=== PATIENT | male | born 1990 | race Caucasian/White ===

== ENCOUNTER → 2017-09-20 | Outpatient (CLI) | payer BC ==
--- NOTE | 2017-09-21 08:18 | CT ---
EXAMINATION TYPE: CT foot LT wo con DATE OF EXAM: 09/20/2017 COMPARISON: NONE HISTORY: Left foot fx. CT DLP: 283 mGycm Automated exposure control for dose reduction was used. FINDINGS: There are comminuted fractures of the base of the third and fourth metatarsals with intra-articular e xtension of the fourth metatarsal base. The fourth metatarsal fracture is nondisplaced and there is m inimal lateral (4 mm) displacement of the distal fracture fragment of the third metatarsal. Overlying associated soft tissue swelling is also seen. Alignment is suboptimal to evaluate the Lisfranc ligam ent, however no gross widening is seen. No additional fracture is identified. The ankle mortise is intact and ankle joint is aligned. Talar dome is unremarkable. Within the limitations of CT the extensor and flexor tendons are unremarkable thickness. The tarsal b ones appear intact and well aligned. IMPRESSION: COMMINUTED FRACTURES OF THE BASES OF THE THIRD AND FOURTH METATARSALS WITH INTRA-ARTICULAR EXTENSION OF THE FOURTH METATARSAL BASE AND MINIMAL 4 MM LATERAL DISPLACEMENT OF THE DISTAL FRACTURE FRAGMENT O F THE THIRD METATARSAL.
== END | disposition home or self-care (01) ==
LOC: RADCTMAIN 18:53
PROVIDERS: ATTEND Orthopaedic Surgery
DX: S92.342D Displaced fracture of fourth metatarsal bone, left foot, subsequent encounter for fracture with routine healing (principal); S92.332D Displaced fracture of third metatarsal bone, left foot, subsequent encounter for fracture with routine healing

== ENCOUNTER 2020-07-19 16:27 | Observation (INO) | payer BC, OTHER ==
--- NOTE | 2020-07-19 19:02 | ED ---
General Adult HPI - General Chief complaint: Chest Pain Stated complaint: chest pain Time Seen by Provider: 07/19/20 18:45 Source: patient Mode of arrival: ambulatory Limitations: no limitations - History of Present Illness Initial comments: Dictation was produced using [employer] dictation software. please excuse any grammatical, word or spelling errors. This patient was cared for during a federal and state declared state of emergency secondary to Covid 19 Chief Complaint: 30 yo Male presents with chest pain History of Present Illness: 30-year-old male who presents today with chest pain. Patient states he has a pressure-like sensation to his substernal area. Patient states she has this on and off for the last 2-3 weeks. He states it initially began as palpitations. Patient reports he has extensive history of cardiac disease in his family. Patient reports that his symptoms occur spontaneously. Is not worse with exertion. Not worsened with deep inspiration. Is not worse with movement. Is not positional. Patient denies any cough or shortness of breath. The ROS documented in this emergency department record has been reviewed and confirmed by me. Those systems with pertinent positive or negative responses have been documented in the HPI. All other systems are other negative and/or noncontributory. PHYSICAL EXAM: General Impression: Alert and oriented x3, not in acute distress HEENT: Normocephalic atraumatic, extra-ocular movements intact, pupils equal and reactive to light bilaterally, mucous membranes moist. Cardiovascular: Heart regular rate and rhythm Chest: Able to complete full sentences, no retractions, no tachypnea Abdomen: abdomen soft, non-tender, non-distended, no organomegaly Musculoskeletal: Pulses present and equal in all extremities, no peripheral edema Motor: no focal deficits noted Neurological: CN II-XII grossly intact, no focal motor or sensory deficits noted Skin: Intact with no visualized rashes Psych: Normal affect and mood ED course: 30-year-old male presents today with atypical chest pain with typical features. Of concern he reports a history of, history of cardiac disease. EKG is unremarkable Vital signs upon arrival shows temperature 9.9, rest vital signs within acceptable limits. Labs are unremarkable. Chest x-ray is negative. Disposition options were discussed with patient. He is agreeable for admission and observation for suture troponins a cardiology consult. Case was discussed with Ema Jones was agreeable with excepting patient care on behalf of [place] hospitalist group. EKG interpretation: Ventricular rate 81, normal sinus rhythm, PA interval 120, QRS 96, QTC 46. No PA prolongation, no QTC prolongation, no ST or T-wave changes noted. Overall, this EKG is unremarkable - Related Data Home Medications Medication Instructions Recorded Confirmed No Known Home Medications 07/19/20 07/19/20 Allergies Allergy/AdvReac Type Severity Reaction Status Date / Time No Known Allergies Allergy Verified 07/19/20 20:19 Review of Systems ROS Statement: Those systems with pertinent positive or pertinent negative responses have been documented in the HPI. ROS Other: All systems not noted in ROS Statement are negative. Past Medical History Additional Past Medical History / Comment(s): heart murmur History of Any Multi-Drug Resistant Organisms: None Reported Past Surgical History: No Surgical Hx Reported Past Psychological History: No Psychological Hx Reported Smoking Status: Never smoker Past Alcohol Use History: Rare Past Drug Use History: Marijuana General Exam Limitations: no limitations Course Vital Signs 07/19/20 07/19/20 16:48 19:00 Temperature 99.9 F H Pulse Rate 86 73 Respiratory 16 18 Rate Blood Pressure 134/91 124/87 O2 Sat by Pulse 100 98 Oximetry Medical Decision Making - Lab Data Result diagrams: 07/19/20 18:59 07/19/20 18:59 Lab Results 07/19/20 07/19/20 07/19/20 Range/Units 18:59 18:59 18:59 WBC 12.7 H (3.8-10.6) k/uL RBC 5.27 (4.30-5.90) m/uL Hgb 16.3 (13.0-17.5) gm/dL Hct 47.9 (39.0-53.0) % MCV 90.9 (80.0-100.0) fL MCH 30.9 (25.0-35.0) pg MCHC 34.0 (31.0-37.0) g/dL RDW 12.2 (11.5-15.5) % Plt Count 287 (150-450) k/uL MPV 8.9 Neutrophils % 69 % Lymphocytes % 18 % Monocytes % 6 % Eosinophils % 4 % Basophils % 1 % Neutrophils # 8.7 H (1.3-7.7) k/uL Lymphocytes # 2.3 (1.0-4.8) k/uL Monocytes # 0.8 (0-1.0) k/uL Eosinophils # 0.5 (0-0.7) k/uL Basophils # 0.1 (0-0.2) k/uL PT 10.2 (9.0-12.0) sec INR 1.0 (<1.2) APTT 24.8 (22.0-30.0) sec Sodium 139 (137-145) mmol/L Potassium 4.0 (3.5-5.1) mmol/L Chloride 103 (98-107) mmol/L Carbon Dioxide 26 (22-30) mmol/L Anion Gap 10 mmol/L BUN 14 (9-20) mg/dL Creatinine 0.96 (0.66-1.25) mg/dL Est GFR (CKD-EPI)AfAm >90 (>60 ml/min/1.73 sqM) Est GFR (CKD-EPI)NonAf >90 (>60 ml/min/1.73 sqM) Glucose 102 H (74-99) mg/dL Calcium 10.1 (8.4-10.2) mg/dL Troponin I (0.000-0.034) ng/mL 07/19/20 Range/Units 18:59 WBC (3.8-10.6) k/uL RBC (4.30-5.90) m/uL Hgb (13.0-17.5) gm/dL Hct (39.0-53.0) % MCV (80.0-100.0) fL MCH (25.0-35.0) pg MCHC (31.0-37.0) g/dL RDW (11.5-15.5) % Plt Count (150-450) k/uL MPV Neutrophils % % Lymphocytes % % Monocytes % % Eosinophils % % Basophils % % Neutrophils # (1.3-7.7) k/uL Lymphocytes # (1.0-4.8) k/uL Monocytes # (0-1.0) k/uL Eosinophils # (0-0.7) k/uL Basophils # (0-0.2) k/uL PT (9.0-12.0) sec INR (<1.2) APTT (22.0-30.0) sec Sodium (137-145) mmol/L Potassium (3.5-5.1) mmol/L Chloride (98-107) mmol/L Carbon Dioxide (22-30) mmol/L Anion Gap mmol/L BUN (9-20) mg/dL Creatinine (0.66-1.25) mg/dL Est GFR (CKD-EPI)AfAm (>60 ml/min/1.73 sqM) Est GFR (CKD-EPI)NonAf (>60 ml/min/1.73 sqM) Glucose (74-99) mg/dL Calcium (8.4-10.2) mg/dL Troponin I <0.012 (0.000-0.034) ng/mL Disposition Clinical Impression: Chest pain Disposition: ADMITTED IP TO THIS HOSP Condition: Fair Referrals: None,Stated [Primary Care Provider] - 1-2 days Decision Time: 20:21
[2020-07-19 19:20] LABS: Basophils # (A) 0.1 k/uL (0-0.2); Basophils % (A) 1 %; Eosinophils # (A) 0.5 k/uL (0-0.7); Eosinophils % (A) 4 %; HCT 47.9 % (39.0-53.0); HGB 16.3 gm/dL (13.0-17.5); Lymphocytes # (A) 2.3 k/uL (1.0-4.8); Lymphocytes % (A) 18 %; MCH 30.9 pg (25.0-35.0); MCV 90.9 fL (80.0-100.0); Mean Platelet Volume 8.9; Monocytes # (A) 0.8 k/uL (0-1.0); Monocytes % (A) 6 %; Neutrophils # (A) 8.7 k/uL (1.3-7.7); Neutrophils % (A) 69 %; Platelet Count 287 k/uL (150-450); RBC 5.27 m/uL (4.30-5.90); RDW 12.2 % (11.5-15.5); WBC 12.7 k/uL (3.8-10.6)
[2020-07-19 19:37] LABS: African American GFR (CKD) >90 (>60 ml/min/1.73 sqM); Anion Gap 10 mmol/L; Blood Urea Nitrogen 14 mg/dL (9-20); Calcium 10.1 mg/dL (8.4-10.2); Carbon Dioxide 26 mmol/L (22-30); Chloride 103 mmol/L (98-107); Glucose 102 mg/dL (74-99); Non-African American GFR(CKD) >90 (>60 ml/min/1.73 sqM); Sodium 139 mmol/L (137-145)
[2020-07-19 19:40] LABS: Partial Thromboplastin Time 24.8 sec (22.0-30.0); Prothrombin Time 10.2 sec (9.0-12.0)
--- NOTE | 2020-07-19 19:42 | XR ---
EXAMINATION TYPE: XR chest 2V DATE OF EXAM: 07/19/2020 COMPARISON: NONE HISTORY: Chest pain. TECHNIQUE: Frontal and lateral views of the chest are obtained. FINDINGS: There is no focal air space opacity, pleural effusion, or pneumothorax seen. The cardiac silhouette size is within normal limits. The osseous structures are intact. IMPRESSION: No acute cardiopulmonary process.
[2020-07-19] MEDS ORDERED: ASPIRIN 81 MG PO STA (20:16)
[2020-07-19] MEDS ORDERED: NITROGLYCERIN SL TABS 0.4 MG TAB SUBLINGUAL PRN (20:16)
[2020-07-20 02:54] LABS: Cholesterol 230 mg/dL (<200); HDL Cholesterol 27 mg/dL (40-60); LDL Cholesterol,Calculated 137 mg/dL (0-99); Triglycerides 329 mg/dL (<150)
[2020-07-20 04:14] VITALS: RESP 18
[2020-07-20] MEDS ORDERED: ASPIRIN 325 MG TAB PO SCH (09:00)
[2020-07-20 09:14] VITALS: BP 133/83; PULSE 84; TEMP 97.9
--- NOTE | 2020-07-20 12:21 | P.CRDCN ---
History of Present Illness History of present illness: HISTORY OF PRESENTING ILLNESS This is a pleasant 30-year-old male with no significant past medical history. 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 We have been asked to see in consultation for chest pain. States for the previous 2 weeks he has been experiencing episodes of what he describes as skipping heartbeats. He feels his heart beating very hard and then he doesn't feel like it beats for a few seconds. This is associated with some discomfort in the chest at times. The discomfort in his chest is mildly reproducible on exam. He denies radiation to the back, arm, neck or jaw. Other than feeling palpitations he denies any associated diaphoresis, nausea or vomiting. He does intermittently feel short of breath at times. DIAGNOSTICS EKG reveals sinus mechanism with no acute ST or T wave abnormalities noted. Chest xray negative for an acute cardiopulmonary process. Laboratory reviewed, WBC 12.7, hemoglobin 16.3, platelets 287, d-dimer less than 0.17, sodium 139, potassium 4.0, creatinine 0.96, cardiac enzymes negative 3, LDL 137, HDL 27, triglycerides 329 and TSH 1.29. He takes no daily cardiac medications. REVIEW OF SYSTEMS At the time of my exam: CONSTITUTIONAL: Denies fever or chills. CARDIOVASCULAR: Denies chest pain, shortness of breath, orthopnea, PND or palpitations. RESPIRATORY: Denies cough. GASTROINTESTINAL: Denies abdominal pain, diarrhea, constipation, nausea or vomiting. MUSCULOSKELETAL: Denies myalgias. NEUROLOGIC: Denies numbness, tingling or weakness. ENDOCRINE: Denies fatigue, weight change, polydipsia or polyurina. GENITOURINARY: Denies burning, hematuria or urgency with micturation. HEMATOLOGIC: Denies history of anemia or bleeding. PHYSICAL EXAMINATION Blood pressure 133/83 heart rate 84 afebrile and maintaining oxygen saturation on room air. CONSTITUTIONAL: No apparent distress. HEENT: Head is normocephalic. Pupils are equal, round. Sclerae anicteric. Mucous membranes of the mouth are moist. No JVD. No carotid bruit. CHEST EXAMINATION: Lungs are clear to auscultation. No chest wall tenderness is noted on palpation or with deep breathing. HEART EXAMINATION: Regular rate and rhythm. S1, S2 heard. No murmurs, gallops or rub. ABDOMEN: Soft, nontender. Positive bowel sounds. EXTREMITIES: 2+ peripheral pulses, no lower extremity edema and no calf tenderness. NEUROLOGIC EXAMINATION: Patient is awake, alert and oriented x3. ASSESSMENT Chest pain, atypical Palpitations PLAN An acute coronary event has been ruled out. Pain is atypical to be related to angina. Telemetry tracings are unremarkable. Obtain 2-D echocardiogram and Doppler study to assess cardiac structure and fun ction. Advised the patient to establish with a primary care physician in the outpatient setting. Follow-up in the office with Dr. Escobar in 2 weeks for outpatient stress test. Thank you kindly for this consultation. Nurse Practitioner note has been reviewed, I agree with a documented findings and plan of care. Patient was seen and examined. Past Medical History Past Medical History: No Reported History Additional Past Medical History / Comment(s): heart murmur History of Any Multi-Drug Resistant Organisms: None Reported Past Surgical History: No Surgical Hx Reported Past Anesthesia/Blood Transfusion Reactions: No Reported Reaction Past Psychological History: No Psychological Hx Reported Smoking Status: Never smoker Past Alcohol Use History: Rare Past Drug Use History: Marijuana - Past Family History Mother Family Medical History: CVA/TIA Father Family Medical History: CVA/TIA Medications and Allergies Home Medications Medication Instructions Recorded Confirmed Type No Known Home Medications 07/19/20 07/19/20 History Allergies Allergy/AdvReac Type Severity Reaction Status Date / Time No Known Allergies Allergy Verified 07/19/20 20:19 Physical Exam Vitals: Vital Signs Temp Pulse Pulse Resp BP BP Pulse Ox 07/20/20 09:13 97.9 F 84 18 133/83 98 07/20/20 07:42 97 07/20/20 02:40 98.1 F 65 18 136/79 99 07/19/20 21:42 98.6 F 68 19 123/89 99 07/19/20 20:39 97.8 F 70 18 114/75 99 07/19/20 20:00 78 19 132/75 99 07/19/20 19:00 73 18 124/87 98 07/19/20 16:48 99.9 F H 86 16 134/91 100 Intake and Output 07/19/20 07/20/20 07/20/20 22:59 06:59 14:59 Other: Voiding Method Toilet # Voids 1 Weight 122.47 kg Results 07/19/20 18:59 07/19/20 18:59 Cardiac Enzymes 07/19/20 07/19/20 07/19/20 Range/Units 18:59 20:26 22:59 Troponin I <0.012 <0.012 <0.012 (0.000-0.034) ng/mL Coagulation 07/19/20 Range/Units 18:59 PT 10.2 (9.0-12.0) sec APTT 24.8 (22.0-30.0) sec Lipids 07/19/20 Range/Units 18:59 Triglycerides 329 H (<150) mg/dL Cholesterol 230 H (<200) mg/dL HDL Cholesterol 27 L (40-60) mg/dL CBC 07/19/20 Range/Units 18:59 WBC 12.7 H (3.8-10.6) k/uL RBC 5.27 (4.30-5.90) m/uL Hgb 16.3 (13.0-17.5) gm/dL Hct 47.9 (39.0-53.0) % Plt Count 287 (150-450) k/uL Comprehensive Metabolic Panel 07/19/20 Range/Units 18:59 Sodium 139 (137-145) mmol/L Potassium 4.0 (3.5-5.1) mmol/L Chloride 103 (98-107) mmol/L Carbon Dioxide 26 (22-30) mmol/L BUN 14 (9-20) mg/dL Creatinine 0.96 (0.66-1.25) mg/dL Glucose 102 H (74-99) mg/dL Calcium 10.1 (8.4-10.2) mg/dL Current Medications Generic Name Dose Route Start Last Admin Trade Name Freq PRN Reason Stop Dose Admin Aspirin 325 mg 07/20/20 09:00 Aspirin 325 Mg Tab PO DAILY HANNAH Nitroglycerin 0.4 mg 07/19/20 20:16 Nitroglycerin Sl Tabs 0.4 Mg Tab SUBLINGUAL Q5M PRN Chest Pain Intake and Output 07/19/20 07/20/20 07/20/20 22:59 06:59 14:59 Other: Voiding Method Toilet # Voids 1 Weight 122.47 kg 07/19/20 18:59 07/19/20 18:59
--- NOTE | 2020-07-20 12:21 | ECHOF ---
Referral Reason:cp, palpitations MEASUREMENTS -------- HEIGHT: 157.5 cm WEIGHT: 122.5 kg BP: RVIDd: 3.4 cm (< 3.3) IVSd: 0.8 cm (0.6 - 1.1) LVIDd: 4.7 cm (3.9 - 5.3) LVPWd: 1.0 cm (0.6 - 1.1) IVSs: 1.4 cm LVIDs: 2.4 cm LVPWs: 1.6 cm Ao Diam: 3.7 cm (2.0 - 3.7) AV Cusp: 2.4 cm (1.5 - 2.6) MV EXCURSION: 20.477 mm (> 18.000) MV EF SLOPE: 118 mm/s (70 - 150) EPSS: 0.5 cm MV E John: 0.82 m/s MV DecT: 198 ms MV A John: 0.60 m/s MV E/A Ratio: 1.36 RAP: 5.00 mmHg RVSP: 13.83 mmHg FINDINGS -------- Sinus rhythm. Morbid Obesity This was a techncally difficult study with suboptimal views, , Definity utilized for enhancement of images. LV size, wall thickness and systolic function are normal, with an EF greater than 55%. Grossly norm al LV size and systolic function. Unable to comment on regional wall motion. The right ventricle is normal in size. The left atrial size is normal. The right atrial size is normal. The aortic valve is trileaflet, and appears structurally normal. No aortic stenosis or regurgitation. Mild mitral regurgitation is present. Mild tricuspid regurgitation present. Right ventricular systolic pressure is normal at < 35 mmHg. There is no pulmonic regurgitation present. The aortic root size is normal. There is no pericardial effusion. CONCLUSIONS -------- 1. Morbid Obesity 2. This was a techncally difficult study with suboptimal views, , Definity utilized for enhancement o f images. 3. LV size, wall thickness and systolic function are normal, with an EF greater than 55%. 4. Grossly normal LV size and systolic function. Unable to comment on regional wall motion. 5. The right ventricle is normal in size. 6. The left atrial size is normal. 7. The right atrial size is normal. 8. Mild mitral regurgitation is present. 9. Mild tricuspid regurgitation present. 10. There is no pulmonic regurgitation present. 11. The aortic root size is normal. 12. There is no pericardial effusion. ASSOCIATE PROFESSOR OF LITERACY: Leti Encarnacion RDCS
--- NOTE | 2020-07-20 13:04 | P.HPIM ---
History of Present Illness Patient is a 24-year-old male came in with complaints of pressure-like chest pain in the left side of the chest and patient was experiencing skipping beats and the this episode did last longer because of patient is concerned came to the hospital patient just pain is nonpleuritic not associated with food mild chest pain nonradiating and not associated diaphoresis. Mildly reproducible. Ruled out acute current syndromes EKG did not show any significant abnormality troponins are negative patient was evaluated by cardiology cleared for discharge d-dimer is negative. Patient's chest pain is not associated with food and he doesn't believe it's acid reflux Review of Systems REVIEW OF SYSTEMS: CONSTITUTIONAL: No fever, no malaise, no fatigue. HEENT: No recent visual problems or hearing problems. Denied any sore throat. CARDIOVASCULAR: No orthopnea, PND, no palpitations, no syncope. PULMONARY: No shortness of breath, no cough, no hemoptysis. GASTROINTESTINAL: No diarrhea, no nausea, no vomiting, no abdominal pain. NEUROLOGICAL: No headaches, no weakness, no numbness. HEMATOLOGICAL: Denies any bleeding or petechiae. GENITOURINARY: Denies any burning micturition, frequency, or urgency. MUSCULOSKELETAL/RHEUMATOLOGICAL: Denies any joint pain, swelling, or any muscle pain. ENDOCRINE: Denies any polyuria or polydipsia. The rest of the 14-point review of systems is negative. Past Medical History Past Medical History: No Reported History Additional Past Medical History / Comment(s): heart murmur History of Any Multi-Drug Resistant Organisms: None Reported Past Surgical History: No Surgical Hx Reported Past Anesthesia/Blood Transfusion Reactions: No Reported Reaction Past Psychological History: No Psychological Hx Reported Smoking Status: Never smoker Past Alcohol Use History: Rare Past Drug Use History: Marijuana - Past Family History Mother Family Medical History: CVA/TIA Father Family Medical History: CVA/TIA Medications and Allergies Home Medications Medication Instructions Recorded Confirmed Type No Known Home Medications 07/19/20 07/19/20 History Allergies Allergy/AdvReac Type Severity Reaction Status Date / Time No Known Allergies Allergy Verified 07/19/20 20:19 Physical Exam Vitals: Vital Signs Temp Pulse Pulse Resp BP BP Pulse Ox 07/20/20 09:13 97.9 F 84 18 133/83 98 07/20/20 07:42 97 07/20/20 02:40 98.1 F 65 18 136/79 99 07/19/20 21:42 98.6 F 68 19 123/89 99 07/19/20 20:39 97.8 F 70 18 114/75 99 07/19/20 20:00 78 19 132/75 99 07/19/20 19:00 73 18 124/87 98 07/19/20 16:48 99.9 F H 86 16 134/91 100 Intake and Output 07/19/20 07/20/20 07/20/20 22:59 06:59 14:59 Other: Voiding Method Toilet # Voids 1 Weight 122.47 kg PHYSICAL EXAMINATION: GENERAL: The patient is alert and oriented x3, not in any acute distress. Obese HEENT: Pupils are round and equally reacting to light. EOMI. No scleral icterus. No conjunctival pallor. Normocephalic, atraumatic. No pharyngeal erythema. No thyromegaly. CARDIOVASCULAR: S1 and S2 present. No murmurs, rubs, or gallops. PULMONARY: Chest is clear to auscultation, no wheezing or crackles. ABDOMEN: Soft, nontender, nondistended, normoactive bowel sounds. No palpable organomegaly. MUSCULOSKELETAL: No joint swelling or deformity. EXTREMITIES: No cyanosis, clubbing, or pedal edema. NEUROLOGICAL: Gross neurological examination did not reveal any focal deficits. SKIN: No rashes. Results CBC & Chem 7: 07/19/20 18:59 07/19/20 18:59 Labs: Abnormal Lab Results - Last 24 Hours (Table) 07/19/20 07/19/20 07/19/20 Range/Units 18:59 18:59 18:59 WBC 12.7 H (3.8-10.6) k/uL Neutrophils # 8.7 H (1.3-7.7) k/uL Glucose 102 H (74-99) mg/dL Triglycerides 329 H (<150) mg/dL Cholesterol 230 H (<200) mg/dL LDL Cholesterol, Calc 137 H (0-99) mg/dL HDL Cholesterol 27 L (40-60) mg/dL Thrombosis Risk Factor Assmnt - Choose All That Apply Any of the Below Risk Factors Present?: No Other Risk Factors: No Other congenital or acquired thrombophilia - If yes, enter type in comment: No Thrombosis Risk Factor Assessment Level: Very Low Risk Assessment and Plan Plan: -Chest pain: Rule out acute coronary syndromes, patient just pain is mostly musculoskeletal. Cleared by cardiology will be discharged to -Palpitations: Probably secondary to PACs or PVCs. -Hyperlipidemia diet counseling was provided -Obesity
--- NOTE | 2020-07-20 13:04 | P.DS ---
Providers Date of admission: 07/19/20 20:16 Attending physician: Lizette Montemayor Consults: 07/19/20 20:16 Consult Physician Urgent Consulting Provider: Cleopatra Womack Consult Reason/Comments: chest pain Do you want consulting provider notified?: Yes Primary care physician: Stated None Hospital Course: Please refer to my HPI for further details Patient Condition at Discharge: Fair Plan - Discharge Summary Discharge Rx Participant: No New Discharge Prescriptions: No Action No Known Home Medications Discharge Medication List No Known Home Medications 07/19/20 [History] Follow up Appointment(s)/Referral(s): Azeem Escobar MD [STAFF PHYSICIAN] - 2 Weeks (Sanaz in office will call you with appointment time and date next week.) Jason Landis MD [REFERRING] - 1 Week Discharge Disposition: HOME SELF-CARE
== END 2020-07-20 13:41 | disposition home or self-care (01) ==
LOC: EC 16:27 → 1SOBS 20:16
PROVIDERS: ADMIT Hospitalist; ATTEND Hospitalist
DX: R07.89 Other chest pain (principal); E66.9 Obesity, unspecified; Z68.37 Body mass index [BMI] 37.0-37.9, adult; E78.5 Hyperlipidemia, unspecified; Z20.828 Contact with and (suspected) exposure to other viral communicable diseases; R01.1 Cardiac murmur, unspecified; Z82.3 Family history of stroke
CPT/HCPCS: 93005 ×2; 99285; 36415; 94760; 93306; 85379; 80061; 80048; 84443; 84484; 85025; 85610; 85730; 87635; 71046; G0378 ×2; Q9950